=== PATIENT | female | born 1970 | race African-American/Black ===

== ENCOUNTER 2017-06-07 16:01 | Emergency (ER) | payer BC, MEDICAID ==
[2017-06-07 16:07] VITALS: BP 143/77
[2017-06-07] MEDS ORDERED: LIDOCAINE 1% INJ-PF (10 MG/ML) 30 ML SDV INJ ONE (16:37)
--- NOTE | 2017-06-07 16:43 | ER Document Report ---
HPI - HPI Pain Level: 5 Notes: Patient is a 46-year-old female who presents to the ED complaining of an abscess to the left cheek 2 weeks. Patient states that it started small pimple but has grown in size and become has become more painful. She has not noticed any discharge, red streaks she still eating and drinking without any difficulties. She has not noticed any trouble swallowing. She denies any drug allergies or other significant past medical history. Denies any history of MRSA. Denies any headache, fever, neck pain/stiffness, URI, sore throat, chest pain, palpitations, syncope, cough, shortness of breath, wheeze, dyspnea, abdominal pain, nausea/vomiting/diarrhea, urinary retention, dysuria, hematuria. Denies IV drug use or cat bite/scratch. - ROS Notes: REVIEW OF SYSTEMS: CONSTITUTIONAL : Denies fever, chills, or sweats. Denies recent illness. EENT: Denies eye, ear, throat, or mouth pain or symptoms. Denies nasal or sinus congestion or discharge. Denies throat, tongue, or mouth swelling or difficulty swallowing. CARDIOVASCULAR: Denies chest pain. Denies palpitations or racing or irregular heart beat. Denies ankle edema. RESPIRATORY: Denies cough, cold, or chest congestion. Denies shortness of breath, difficulty breathing, or wheezing. GASTROINTESTINAL: Denies abdominal pain or distention. Denies nausea, vomiting , or diarrhea. Denies blood in vomitus, stools, or per rectum. Denies black, tarry stools. Denies constipation. GENITOURINARY: Denies difficulty urinating, painful urination, burning, frequency, blood in urine, or discharge. MUSCULOSKELETAL: Denies back or neck pain or stiffness. Denies joint pain or swelling. SKIN: see hpi NEUROLOGICAL: Denies confusion or altered mental status. Denies passing out or loss of consciousness. Denies dizziness or lightheadedness. Denies headache. Denies weakness or paralysis or loss of use of either side. Denies problems with gait or speech. Denies sensory loss, numbness, or tingling. ALL OTHER SYSTEMS REVIEWED AND NEGATIVE. Dictation was performed using [employer] voice recognition software - DERM Skin Color: Normal Past Medical History - Social History Smoking Status: Unknown if Ever Smoked Family History: Reviewed & Not Pertinent Renal/ Medical History: Denies: Hx Peritoneal Dialysis Vertical Provider Document - CONSTITUTIONAL Agree With Documented VS: Yes Notes: PHYSICAL EXAMINATION: GENERAL: Well-appearing, well-nourished and in no acute distress. HEAD: Atraumatic, normocephalic. EYES: Pupils equal round and reactive to light, extraocular movements intact, sclera anicteric, conjunctiva are normal. ENT: EAC clear b/l. TM's intact b/l without erythema, fluid, or perforation. Nares patent and without discharge. oropharynx clear without exudates. No tonsilar hypertrophy or erythema. Moist mucous membranes. No sinus tenderness. No palatine shift. uvula midline. No tongue protrusion. No resp compromise. Face: + 2 cm abscess, mild erythema to the left lower face. + tenderness and fluctuant fluid noted. No streaks or discharge noted. Mouth: Pt has missing teeth to her left lateral molars. No abscess or erythema to the gum line. Non-tender. NECK: Normal range of motion, supple without lymphadenopathy. No rigidity/ meningismus. LUNGS: Breath sounds clear to auscultation bilaterally and equal. No wheezes rales or rhonchi. HEART: Regular rate and rhythm without murmurs, rubs, gallops. Extremities: No cyanosis, clubbing, or edema b/l. Peripheral pulses 2+. Capillary refill less than 3 seconds. NEUROLOGICAL: Cranial nerves grossly intact. Normal speech, normal gait. Normal sensory, motor exams PSYCH: Normal mood, normal affect. SKIN: See Face Exam. warm, Dry, normal turgor, no rashes or lesions noted. - INFECTION CONTROL TRAVEL OUTSIDE OF THE [place] IN LAST 30 DAYS: No - RESPIRATORY O2 Sat by Pulse Oximetry: 98 Course - Re-evaluation Re-evalutation: 06/07/17 17:23 Patient is an afebrile, well-hydrated, 46-year-old female who presents to the ED with an abscess to the left lower face. Vitals are stable. PE otherwise unremarkable. Incision and drainage w. packing was performed successfully without any complications. Patient tolerated the procedure well. Wound dressing was placed. Wound culture was obtained and is pending. I will send her home with a prescription for Bactrim and Keflex to take as directed. Wound instructions as reviewed. Conservative measures for symptoms otherwise as reviewed. Recheck with your PCM/ED in 2-3 days. Return to the ED with any worsening/concerning symptoms otherwise as reviewed in discharge. Patient is in agreement. Low suspicion for any sepsis, meningitis, violetta's, peritonsilar/pharyngeal abscess, nec fasc, or other systemic emergent condition at this time. Pt is aware that her condition can change from initial presentation and she needs to monitor symptoms closely and seek medical attention if any acute changes. - Vital Signs Vital signs: Temp Pulse Resp BP Pulse Ox 99.2 F 83 16 143/77 H 98 06/07/17 16:05 06/07/17 16:05 06/07/17 16:05 06/07/17 16:05 06/07/17 16:05 Procedures - Incision and Drainage Left Face Time completed: 17:20 Type: Simple Anesthetic type: 1% Lidocaine mL's of anesthetic: 5 Blade size: 11 I&D procedure: Chlorprep applied, Shurclens applied, Sterile dressing applied Incision Method: Incision made by scalpel Amount/type of drainage: Moderate purulence Notes: 06/07/17 17:20 Incision and drainage procedure, risks, benefits reviewed with the patient. Verbal and written consent obtained. Sterile technique utilized. The area was extensively cleansed utilizing chlorhexadine and saline. A 21-gauge needle was utilized to anesthetize the area using 5 mL's of 1% lidocaine without epinephrine. Once adequate anesthesia was provided, a #11 scalpel was utilized to make a 1.5 cm elliptical incision at the site of the abscess. Moderate amounts of purulent material was expressed. Wound culture obtained. Hemostats were then utilized to break up any remaining muscular pockets within the abscess. The wound was then lightly packed using 1/4" iodoform. Wound dressing and triple antibiotic placed. Minimal blood loss (approximately 2-3 cc's). Patient tolerated procedure well. No complications. Adult Head Front/Back picture: 1 - abscess Discharge - Discharge Clinical Impression: Abscess Condition: Stable Disposition: HOME, SELF-CARE Instructions: Abscess ([facility]), Cephalexin ([facility]), Post Incision and Drainage, Trimethoprim-Sulfa ([facility]) Additional Instructions: Do not shower or bathe for 24 hours. After 24 hours she may shower but no submersion of the wound under water. Keep the original dressing on the wound for 24 hours unless the drainage soaks through. Change the dressing daily thereafter and use a small amount of triple antibiotic ointment over the open wound. Return to the ED and/or your PCM in 2-3 days for recheck and continue direction for wound packing. Monitor for any signs of worsening pain or redness , streaks, and/or fever. Return to the ED if noticing any of the above symptoms or as needed. Take medications as directed. Prescriptions: Cephalexin Monohydrate [Keflex 500 mg Capsule] 500 mg PO BID #20 capsule Sulfamethoxazole/Trimethoprim [Bactrim Ds Tablet] 1 each PO BID #20 tablet Forms: Elevated Blood Pressure Referrals: [facility] [Provider Group] - Follow up as needed [facility] [Provider Group] - Follow up as needed
== END 2017-06-07 17:52 | disposition home or self-care (01) ==
LOC: ER 16:01
PROC: 0H91XZZ Drainage of Face Skin, External Approach (ICD-10-PCS; principal; 2017-06-07)
DX: L02.01 Cutaneous abscess of face (principal)
CPT/HCPCS: 99283; 87070; 87205; 87075; 87077; 10060; A6266

== ENCOUNTER 2017-06-10 12:57 | Emergency (ER) | payer SELFPAY ==
[2017-06-10 13:14] VITALS: BP 131/83
[2017-06-10] MEDS ORDERED: HYDROCODONE/ACETAMINOPHEN 5-325 MG TABLET PO ONE (14:09)
--- NOTE | 2017-06-10 14:12 | ER Document Report ---
ED Wound - General Chief Complaint: Wound Recheck Stated Complaint: ER FOLLOW UP Time Seen by Provider: 06/10/17 14:08 Mode of Arrival: Ambulatory Information source: Patient Notes: Patient had facial abscess treated and packed 3 days ago. She returns now for a recheck. She states still has some tenderness. No fevers or drainage of pus. No other significant concerns. The pain is been constant. It radiates throughout her face. It is worse when touched and better if left alone. TRAVEL OUTSIDE OF THE [place] IN LAST 30 DAYS: No - Related Data Allergies/Adverse Reactions: banana Allergy (Verified 06/10/17 13:14) Past Medical History - General Information source: Patient - Social History Smoking Status: Never Smoker Chew tobacco use (# tins/day): No Frequency of alcohol use: None Drug Abuse: None Family History: Reviewed & Not Pertinent Renal/ Medical History: Denies: Hx Peritoneal Dialysis - Immunizations Hx Diphtheria, Pertussis, Tetanus Vaccination: No Review of Systems - Review of Systems Constitutional: denies: Chills, Fever Respiratory: denies: Cough, Short of breath Skin: Lesions, Rash Physical Exam - Vital signs Vitals: Temp Pulse Resp BP Pulse Ox 98.8 F 97 16 131/83 H 99 06/10/17 13:12 06/10/17 13:12 06/10/17 13:12 06/10/17 13:12 06/10/17 13:12 Interpretation: Normal - General General appearance: Appears well, Alert - Psychological Associated symptoms: Normal affect, Normal mood - Skin Skin Temperature: Warm Skin Moisture: Dry Skin Color: Normal, Other - Skin exam unremarkable other than left cheek. Left cheek has an obvious healing abscess with iodoform packing in place. It appears to be healing normally. Course - Re-evaluation Re-evalutation: 06/10/17 14:10 Iodoform packing was removed. Wound was inspected. It appears to be healing normally. No significant drainage of pus. No significant surrounding erythema. Wound was redressed by the nurse. - Vital Signs Vital signs: Temp Pulse Resp BP Pulse Ox 98.8 F 97 16 131/83 H 99 06/10/17 13:12 06/10/17 13:12 06/10/17 13:12 06/10/17 13:12 06/10/17 13:12 Discharge - Discharge Clinical Impression: Encounter for wound re-check Condition: Stable Disposition: HOME, SELF-CARE Instructions: Abscess ([facility]) Additional Instructions: Please follow-up with your primary care physician early next week. Please return to the emergency department if further problems with fever, pain, or any significant concerns. Prescriptions: Hydrocodone/Acetaminophen [[place] 5-325 mg Tablet] 1 tab PO Q6 #12 tablet Forms: Elevated Blood Pressure
== END 2017-06-10 14:18 | disposition home or self-care (01) ==
LOC: ER 12:57
DX: L02.01 Cutaneous abscess of face (principal)
CPT/HCPCS: 99282

== ENCOUNTER 2018-03-02 10:55 | Emergency (ER) | payer SELFPAY ==
[2018-03-02 11:02] VITALS: BP 133/78
[2018-03-02] MEDS ORDERED: KETOROLAC TROMETHAMINE INJ/PF 30 MG/1 ML SDV IM ONE (11:09)
--- NOTE | 2018-03-02 11:14 | ER Document Report ---
HPI - HPI Pain Level: 5 Notes: Patient is a 47-year-old female with a history of hypertension who presents to the ED complaining of right thumb and wrist pain times 2 days. Patient states that there has not been no injury. 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 Patient states that occasionally the pain will start to shoot up her arm, but originates and stays primarily to the wrist/ thumb area. Patient has not had any associated numbness or tingling. Patient states that using those muscles make her pain worse. She has not noticed any other swelling, bruising, or deformity. Denies any drug allergies. Denies any headache, fever, URI, sore throat, chest pain, palpitations, syncope, cough, shortness of breath, wheeze, dyspnea, abdominal pain, nausea/vomiting/diarrhea, urinary retention, dysuria, hematuria, numbness/tingling, muscle paralysis/ weakness, or rash. - ROS Systems Reviewed and Negative: Yes All other systems reviewed and negative Past Medical History - Social History Smoking Status: Never Smoker Family History: Reviewed & Not Pertinent Renal/ Medical History: Denies: Hx Peritoneal Dialysis - Immunizations Hx Diphtheria, Pertussis, Tetanus Vaccination: No Vertical Provider Document - CONSTITUTIONAL Agree With Documented VS: Yes Notes: PHYSICAL EXAMINATION: GENERAL: Well-appearing, well-nourished and in no acute distress. LUNGS: Breath sounds clear to auscultation bilaterally and equal. No wheezes rales or rhonchi. HEART: Regular rate and rhythm without murmurs, rubs, gallops. Musculoskeletal: Rt wrist: FROM to passive/active. Strength 4+/5 due to pain. No bony tenderness. N/V intact distal. Tinel/phalen negative. No scaphoid tenderness. No erythema, ecchymosis, deformity, or swelling noted. + rachele test which correlates with pain described. Extremities: No cyanosis, clubbing, or edema b/l. Peripheral pulses 2+. Capillary refill less than 3 seconds. NEUROLOGICAL: Normal speech, normal gait. Normal sensory, motor exams PSYCH: Normal mood, normal affect. SKIN: Warm, Dry, normal turgor, no rashes or lesions noted. - INFECTION CONTROL TRAVEL OUTSIDE OF THE [place] IN LAST 30 DAYS: No Course - Re-evaluation Re-evalutation: 06/12/18 11:30 Patient is an afebrile, well-hydrated, 47-year-old female who presents to the ED with right thumb/wrist pain, suspect de Quervain's tenosynovitis based on H& P. 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 Vitals are acceptable without any tachycardia, tachypnea, or hypoxia. PE is otherwise unremarkable for any neurovascular compromise, obvious tendon/ligament rupture, obvious fracture/ dislocation, septic joint. No labs or imaging warranted at this time based on H &P. Thumb spica placed today and sling provided. Toradol given IM today. I will be sending her home with a prescription for naproxen and Voltaren gel. Conservative measures otherwise for symptoms. Recheck with your PCM in 3-5 days. Call orthopedics to schedule an appointment for further evaluation and management as well. Return to the ED with any worsening/concerning symptoms otherwise as reviewed discharge. Patient is in agreement. - Vital Signs Vital signs: Temp Pulse Resp BP Pulse Ox 99.2 F 98 16 133/78 H 98 03/02/18 11:00 03/02/18 11:00 03/02/18 11:00 03/02/18 11:00 03/02/18 11:00 Procedures - Immobilization Right Wrist Thumb Time completed: 11:30 Pre-Proc Neuro Vasc Exam: Normal Immobilizer type: Thumb spica Performed by: PCT Post-Proc Neuro Vasc Exam: Normal, Unchanged from pre-exam Discharge - Discharge Clinical Impression: De Quervain's tenosynovitis, right Condition: Stable Disposition: HOME, SELF-CARE Instructions: Splint Precautions ([facility]), Temporary Sling ([facility]), Tendonitis ([facility]) Additional Instructions: Rest, Ice, Compression, Elevation Use splint/sling as directed Tylenol/ibuprofen as needed Light stretches daily Strength exercises as able Moist heat and massage may help F/u with your PCP in 3-5 days for a recheck Call orthopedics today to schedule an appointment for further evaluation and management Return to the ED with any worsening symptoms and/or development of fever, headache, chest pain, palpitations, syncope, shortness of breath, trouble breathing, abdominal pain, n/v/d, muscle weakness/paralysis, numbness/tingling, swelling, redness, or other worsening symptoms that are concerning to you. Prescriptions: Diclofenac Sodium [Voltaren] 4 gm TP QID PRN #100 gel..gm. PRN Reason: Naproxen 500 mg PO BID PRN #30 tablet PRN Reason: Forms: Elevated Blood Pressure, Return to Work Referrals: [facility] ([facility]) [Provider Group] - Follow up in 3-5 days
== END 2018-03-02 11:44 | disposition home or self-care (01) ==
LOC: ER 10:55
PROC: 2W3CX1Z Immobilization of Right Lower Arm using Splint (ICD-10-PCS; principal; 2018-03-02)
DX: M65.4 Radial styloid tenosynovitis [de Quervain] (principal)
CPT/HCPCS: 99283; 96372; 29125; J1885

== ENCOUNTER 2018-03-09 05:55 | Emergency (ER) | payer SELFPAY ==
[2018-03-09] MEDS ORDERED: HYDROCODONE/ACETAMINOPHEN 5-325 MG TABLET PO ONE (08:26)
--- NOTE | 2018-03-09 09:32 | RADIOLOGY REPORT (SQ) ---
EXAM DESCRIPTION: KNEE RIGHT 4 VIEWS COMPLETED DATE/TIME: 03/09/2018 9:24 am REASON FOR STUDY: fall COMPARISON: None. NUMBER OF VIEWS: Four views. TECHNIQUE: AP, lateral, and both oblique radiographic images acquired of the right knee. LIMITATIONS: None. FINDINGS: MINERALIZATION: Normal. BONES: No acute fracture or dislocation. No worrisome bone lesions. JOINT: No effusion. SOFT TISSUES: No soft tissue swelling. No radio-opaque foreign body. OTHER: No other significant finding. IMPRESSION: No acute fracture or malalignment. No significant knee joint effusion TECHNICAL DOCUMENTATION: JOB ID: [id number] [employer]- All Rights Reserved Reading location - IP/workstation name: [email or web address]
--- NOTE | 2018-03-09 09:39 | RADIOLOGY REPORT (SQ) ---
EXAM DESCRIPTION: FOREARM LEFT COMPLETED DATE/TIME: 03/09/2018 9:24 am REASON FOR STUDY: fall COMPARISON: None. NUMBER OF VIEWS: Two views. TECHNIQUE: Two radiographic images acquired of the left forearm, including elbow and wrist in at [address] one projection. LIMITATIONS: None. FINDINGS: MINERALIZATION: Normal. BONES: No acute fracture. No worrisome bone lesions. SOFT TISSUES: No obvious swelling or foreign body. OTHER: No other significant finding. IMPRESSION: NEGATIVE STUDY OF THE LEFT FOREARM. NO RADIOGRAPHIC EVIDENCE OF ACUTE INJURY. TECHNICAL DOCUMENTATION: JOB ID: [id number] [employer]- All Rights Reserved Reading location - IP/workstation name: [email or web address]
--- NOTE | 2018-03-09 09:40 | RADIOLOGY REPORT (SQ) ---
EXAM DESCRIPTION: KNEE LEFT 4 VIEW COMPLETED DATE/TIME: 03/09/2018 9:23 am REASON FOR STUDY: fall fell through bathroom floor, anterior left knee pain COMPARISON: None. NUMBER OF VIEWS: Four views. TECHNIQUE: AP, lateral, and both oblique radiographic images acquired of the left knee. LIMITATIONS: None. FINDINGS: MINERALIZATION: Normal. BONES: No acute fracture or dislocation. No worrisome bone lesions. JOINT: No effusion. SOFT TISSUES: No soft tissue swelling. No radio-opaque foreign body. OTHER: No other significant finding. IMPRESSION: NEGATIVE STUDY OF THE LEFT KNEE. NO RADIOGRAPHIC EVIDENCE OF ACUTE INJURY. TECHNICAL DOCUMENTATION: JOB ID: [id number] [employer]- All Rights Reserved Reading location - IP/workstation name: [email or web address]
--- NOTE | 2018-03-09 09:45 | ER Document Report ---
HPI - HPI Patient complains to provider of: Injury Onset: This morning Onset/Duration: Sudden Quality of pain: Achy Pain Level: 5 Context: Patient states that she fell through her bathroom floor around midnight this morning. Patient complains of bilateral knee pain, left forearm pain and left lateral side pain. Associated Symptoms: Other - Extremity pain, left lateral side pain Exacerbated by: Movement Relieved by: Denies Similar symptoms previously: No Recently seen / treated by doctor: Yes - ROS ROS below otherwise negative: Yes Systems Reviewed and Negative: Yes All other systems reviewed and negative - CONSTITUTIONAL Constitutional: DENIES: Fever - NEURO Neurology: DENIES: Headache, Weakness - GASTROINTESTINAL Gastrointestinal: DENIES: Nausea, Patient vomiting - URINARY Urinary: DENIES: Dysuria - MUSCULOSKELETAL Musculoskeletal: REPORTS: Extremity pain - bilateral knee, LFA. DENIES: Back Pain, Neck Pain - DERM Skin Color: Normal Skin Problems: Abrasion Past Medical History - General Information source: Patient - Social History Smoking Status: Current Every Day Smoker Chew tobacco use (# tins/day): No Smoking Education Provided: Yes Frequency of alcohol use: None Drug Abuse: None Occupation: None Lives with: Family Family History: Reviewed & Not Pertinent Patient has suicidal ideation: No Patient has homicidal ideation: No - Past Medical History Cardiac Medical History: Reports: Hx Hypertension Pulmonary Medical History: Reports: Hx Asthma Renal/ Medical History: Denies: Hx Peritoneal Dialysis Musculoskeltal Medical History: Reports Hx Arthritis Past Surgical History: Reports: Hx Section - Immunizations Hx Diphtheria, Pertussis, Tetanus Vaccination: No Vertical Provider Document - CONSTITUTIONAL Agree With Documented VS: Yes Exam Limitations: No Limitations General Appearance: WD/WN, No Apparent Distress - INFECTION CONTROL TRAVEL OUTSIDE OF THE [place] IN LAST 30 DAYS: No - HEENT HEENT: Atraumatic, Normocephalic - NECK Neck: Normal Inspection, Supple - RESPIRATORY Respiratory: Breath Sounds Normal, No Respiratory Distress - CARDIOVASCULAR Cardiovascular: Regular Rate, Regular Rhythm Pulses: Normal: Radial, Dorsalis pedis - BACK Back: Normal Inspection. negative: CVA Tenderness-Right, CVA Tenderness-Left Notes: No spinal midline tenderness, step-off or deformity - MUSCULOSKELETAL/EXTREMETIES Musculoskeletal/Extremeties: MAEW, FROM, Tender - Bilateral generalized knee joint tenderness, right worse than left. No joint effusion, no laxity with varus or valgus maneuvers. Patellar tendon intact. Patient with superficial abrasions overlying right knee. Left forearm tenderness, no wrist or elbow tenderness, no swelling or deformity. - NEURO Level of Consciousness: Awake, Alert, Appropriate Motor/Sensory: No Motor Deficit - DERM Integumentary: Warm, Dry Notes: Superficial abrasion overlying right knee Course - Re-evaluation Re-evalutation: 03/09/18 09:44 Offered patient crutches, patient declined. - Vital Signs Vital signs: Temp Pulse Resp BP Pulse Ox 98.6 F 98 16 133/80 H 96 03/09/18 06:29 03/09/18 06:29 03/09/18 06:29 03/09/18 06:29 03/09/18 06:29 - Diagnostic Test Radiology reviewed: Image reviewed, Reports reviewed Procedures - Immobilization Left Knee Pre-Proc Neuro Vasc Exam: Normal Immobilizer type: [place] wrap Performed by: PCT Post-Proc Neuro Vasc Exam: Normal Alignment checked and good: Yes Right Knee Pre-Proc Neuro Vasc Exam: Normal Immobilizer type: [place] wrap Performed by: PCT Post-Proc Neuro Vasc Exam: Normal Alignment checked and good: Yes Discharge - Discharge Clinical Impression: Sprain of both knees, Left forearm pain, Muscle strain Fall Qualifiers: Encounter type: initial encounter Qualified Code(s): W19.XXXA - Unspecified fall, initial encounter Abrasion of right knee Qualifiers: Encounter type: initial encounter Qualified Code(s): S80.211A - Abrasion, right knee, initial encounter Condition: Stable Disposition: HOME, SELF-CARE Instructions: Parish Wrap ([facility]), Ice & Elevation ([facility]), Muscle Relaxers ([facility]), Muscle Strain ([facility]), Oral Narcotic Medication ([facility]), Sprained Knee ([facility]) Additional Instructions: Return immediately for any new or worsening symptoms Followup with your primary care provider, call tomorrow to make a followup appointment Follow-up with orthopedics for any continued pain or problems, call tomorrow for an appointment Prescriptions: Cyclobenzaprine HCl [Flexeril 10 Mg Tablet] 10 mg PO TID #15 tablet Hydrocodone/Acetaminophen [[place] 5-325 Tablet] 1 each PO Q4 PRN #10 tablet PRN Reason: Forms: Smoking Cessation Education Referrals: [facility] ([facility]) [Provider Group] - Follow up as needed
[2018-03-09 10:10] VITALS: BP 133/88
== END 2018-03-09 10:10 | disposition home or self-care (01) ==
LOC: ER 05:55
DX: S83.92XA Sprain of unspecified site of left knee, initial encounter (principal); S83.91XA Sprain of unspecified site of right knee, initial encounter; S80.211A Abrasion, right knee, initial encounter; M79.632 Pain in left forearm; W18.39XA Other fall on same level, initial encounter; F17.200 Nicotine dependence, unspecified, uncomplicated; I10 Essential (primary) hypertension
CPT/HCPCS: 99283

== ENCOUNTER 2018-06-17 19:06 | Emergency (ER) | payer SELFPAY ==
[2018-06-17 19:25] VITALS: BP 130/72
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
== END 2018-06-17 20:02 | disposition home or self-care (01) ==
LOC: ER 19:06
DX: L20.82 Flexural eczema (principal); Z09 Encounter for follow-up examination after completed treatment for conditions other than malignant neoplasm; Z87.828 Personal history of other (healed) physical injury and trauma; I10 Essential (primary) hypertension; J45.909 Unspecified asthma, uncomplicated
CPT/HCPCS: 99283

== ENCOUNTER 2018-07-08 14:01 | Emergency (ER) | payer SELFPAY ==
[2018-07-08] MEDS ORDERED: IBUPROFEN 800 MG TABLET PO ONE (14:43)
--- NOTE | 2018-07-08 14:44 | ER Document Report ---
ED Neck/Back Problem - General Chief Complaint: Back Pain Stated Complaint: BACK PAIN Time Seen by Provider: 07/08/18 14:30 Mode of Arrival: Ambulatory Information source: Patient Notes: 48-year old female presents to ED for complaint of pain to her upper back and right shoulder. She also has chronic pain to her left knee from a injury in March and both feet because of heel spurs. Patient states she has had the pain off and on is been worse for the last 2 weeks. Patient does not work. Patient states that her doctor gave her something for arthritis and told her she had arthritis. 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 Patient is alert and oriented respirations regular and unlabored speaking in full sentences walks with a even steady gait. TRAVEL OUTSIDE OF THE [place] IN LAST 30 DAYS: No - HPI Patient complains to provider of: Upper back - And right shoulder Onset: Other - Upper back off and on chronic but worse for the last 2 weeks right shoulder for 2 weeks Onset: Chronic Timing: Still present Quality of pain: Sharp, Throbbing Severity: Severe Pain Level: 5 Recent injury: No Associated symptoms: Like prior neck/back pain, Upper back pain - 2 right shoulder. denies: Motor loss, Numbness/tingling, Radiation to arm, Radiation to chest, Radiation to leg, Sensory loss, Sweaty, Unable to urinate, Lower back pain Exacerbated by: Movement of neck, Other Relieved by: Nothing - Mental shoulder Similar symptoms previously: Yes Recently seen / treated by doctor: Yes - Related Data Allergies/Adverse Reactions: banana Allergy (Verified 07/08/18 14:02) Past Medical History - General Information source: Patient - Social History Smoking Status: Never Smoker Cigarette use (# per day): No Chew tobacco use (# tins/day): No Smoking Education Provided: No Frequency of alcohol use: None Drug Abuse: None Lives with: Family Family History: Reviewed & Not Pertinent Patient has suicidal ideation: No Patient has homicidal ideation: No - Past Medical History Cardiac Medical History: Reports: Hx Hypertension Pulmonary Medical History: Reports: Hx Asthma EENT Medical History: Reports: None Neurological Medical History: Reports: None Endocrine Medical History: Reports: None Renal/ Medical History: Reports: None Malignancy Medical History: Reports: None GI Medical History: Reports: None Musculoskeletal Medical History: Reports Hx Arthritis, Reports Hx Musculoskeletal Deformity - Bone spurs, Reports Hx Musculoskeletal Trauma Skin Medical History: Reports None Psychiatric Medical History: Reports: None Traumatic Medical History: Reports: None Infectious Medical History: Reports: None Past Surgical History: Reports: Hx Section - 3 - Immunizations Immunizations up to date: Yes Hx Diphtheria, Pertussis, Tetanus Vaccination: Yes - 2013 Review of Systems - Review of Systems Constitutional: No symptoms reported EENT: No symptoms reported Cardiovascular: No symptoms reported Respiratory: No symptoms reported Gastrointestinal: No symptoms reported Genitourinary: No symptoms reported Female Genitourinary: No symptoms reported Musculoskeletal: Back pain, Muscle pain, Muscle stiffness Skin: No symptoms reported Hematologic/Lymphatic: No symptoms reported Neurological/Psychological: No symptoms reported -: Yes All other systems reviewed and negative Physical Exam - Vital signs Vitals: Temp Pulse Resp BP Pulse Ox 98.7 F 83 20 117/68 99 07/08/18 14:06 07/08/18 14:06 07/08/18 14:06 07/08/18 14:06 07/08/18 14:06 Interpretation: Normal - General General appearance: Appears well, Alert - HEENT Head: Normocephalic, Atraumatic Eyes: Normal Pupils: PERRL - Respiratory Respiratory status: No respiratory distress Chest status: Nontender Breath sounds: Normal Chest palpation: Normal - Cardiovascular Rhythm: Regular Heart sounds: Normal auscultation Murmur: No - Abdominal Inspection: Normal Distension: No distension Bowel sounds: Normal Tenderness: Nontender Organomegaly: No organomegaly - Back Back: Normal, Tender - Upper back and right posterior shoulder, Vertebra tenderness - t spine. No: Deformity/step-off, CVA tenderness, Scars, Scoliosis , Wounds - Extremities General upper extremity: Normal inspection, Nontender, Normal color, Normal ROM , Normal temperature General lower extremity: Normal inspection, Nontender, Normal color, Normal ROM , Normal temperature, Normal weight bearing. No: Leonides's sign - Neurological Neuro grossly intact: Yes Cognition: Normal Orientation: AAOx4 [place] Coma Scale Eye Opening: Spontaneous [place] Coma Scale Verbal: Oriented [place] Coma Scale Motor: Obeys Commands Gary Coma Scale Total: 15 Speech: Normal Motor strength normal: LUE, RUE, LLE, RLE Sensory: Normal - Psychological Associated symptoms: Normal affect, Normal mood - Skin Skin Temperature: Warm Skin Moisture: Dry Skin Color: Normal Course - Vital Signs Vital signs: Temp Pulse Resp BP Pulse Ox 97.6 F 76 20 117/75 98 07/08/18 15:46 07/08/18 15:46 07/08/18 14:06 07/08/18 15:46 07/08/18 15:46 - Diagnostic Test Radiology reviewed: Image reviewed, Reports reviewed Discharge - Discharge Clinical Impression: Arthritis, Upper back pain Right shoulder pain Qualifiers: Chronicity: unspecified Qualified Code(s): M25.511 - Pain in right shoulder Bilateral knee pain Qualifiers: Chronicity: unspecified Qualified Code(s): M25.561 - Pain in right knee Condition: Stable Disposition: HOME, SELF-CARE Additional Instructions: Arthritis Your symptoms are due to arthritis. Arthritis is an inflammation of the joints. There are many types -- osteoarthritis (due to "wear and tear"), auto- immmune arthritis (such as rheumatoid, lupus, Maciej's, and others), and crystal -induced arthritis (such as gout and pseudogout). The physician's examination, combined with laboratory tests, will determine the cause of your arthritis. All types of arthritis are treated with antiinflammatory medications. Other medication may be required for special types of arthritis, or if your problem does not respond to the antiinflammatory medicine. Local warmth may be helpful. Move the involved joints through the full range of motion daily. Mild exercise is usually still possible for most persons with arthritis (ask your physician). Swimming provides good exercise without damaging the joints. Contact the physician if you are worsening in any way. CONTUSION: Your injury has resulted in a contusion -- a crushing of the deep tissues. No injury to important structures was detected during the physician's exam. Contusions vary in the amount of pain they cause, and in the length of time required for healing. Typically, the area will become bruised, and will remain painful to touch for two or three weeks. However, most patients are back to working and playing within a few days. After the initial period of rest and cold-packs, your symptoms (together with the doctor's recommendations) will determine how rapidly you can get back to full activity. Usually this means "do what feels okay, but don't do things that hurt." If re-examination was recommended, it's important to follow up as instructed. Call the doctor or return any time if pain increases, if swelling becomes severe, if you develop numbness or weakness in an injured extremity, or if any other alarming symptoms occur. USE OF TYLENOL (ACETAMINOPHEN): Acetaminophen may be taken for pain relief or fever control. It's much safer than aspirin, offering a wider range of "safe" dosages. It is safe during . Some brand names are Tylenol, Panadol, Datril, Anacin 3, Tempra, and Liquiprin. Acetaminophen can be repeated every four hours. The following are maximum recommended dosages: WEIGHT Dose Drops Elixir Chewable( 80mg) (LBS.) drprs=droppers tsp=teaspoon 6 40 mg 0.4 ml (1/2) 6-11 80 mg 0.8 ml (full) tsp 1 tab 12-16 120 mg 1 1/2 drprs 3/4 tsp 1 1/2 tabs 17-23 160 mg 2 drprs 1 tsp 2 tabs 24-30 240 mg 3 drprs 1 1/2 tsp 3 tabs 30-35 320 mg 2 tsp 4 tabs 36-41 360 mg 2 1/4 tsp 4 1/2 tabs 42-47 400 mg 2 1/2 tsp 5 tabs 48-53 480 mg 3 tsp 6 tabs 54-59 520 mg 3 1/4 tsp 6 1/2 tabs 60-64 560 mg 3 1/2 tsp 7 tabs 65-70 600 mg 3 3/4 tsp 7 1/2 tabs 71-76 640 mg 4 tsp 8 tabs 77-82 720 mg 4 1/2 tsp 9 tabs 83-88 800 mg 5 tsp 10 tabs >89 pounds or adults 650 mg to 900 mg Acetaminophen can be repeated every four hours. Maximum dose not to exceed 4000 mg a day. These maximum recommended dosages are slightly higher than the dosages written on the product container, but these dosages are very safe and below the toxic dosage for acetaminophen. ICE PACKS: Apply ice packs frequently against the painful area. Many different schedules are recommended, such as "20 minutes on, 20 minutes off" or "one hour ice, two hours rest." If you need to work, you may need to go longer between ice treatments. You should plan to have the area ice packed AT LEAST one fourth of the time. The ice should be applied over the wrap, tape, or splint, or over a layer of cloth -- not directly against the skin. Some ice bags have a built-in cloth and can be put directly on the skin. WARM PACKS: After approximately two days, apply gentle heat (such as a heating pad or hot water bottle) for about 20 to 30 minutes about every two hours -- at least four times daily. Warmth and elevation will help you make a more rapid recovery , and will ease the pain considerably. Do not use HOT heat, and never apply heat for longer than 30 minutes. The continuous heat can invisibly damage skin and muscles -- even when no burn is seen on the surface. Damaged muscles can make you MORE sore. Ibuprofen Ibuprofen is an excellent, safe drug for pain control. In addition, it has potent antiinflammatory effects which are beneficial, especially in the treatment of injuries, arthritis, or tendonitis. It's best to take ibuprofen with food. Persons with ulcer disease or allergy to aspirin should notify their physician of this before taking ibuprofen. Take the medication exactly as prescribed. Don't take additional doses unless instructed to do so by your doctor. If you develop wheezing, shortness of breath, hives, faintness, stomach pain, vomiting, or dark black stools, return for re-evaluation at once. Exercise Program for the Shoulder Since the shoulder moves in so many directions, the joint attachment is weak. Muscles provide most of the stability to the shoulder. You must exercise your shoulder to prevent painful instability or stiffening. PASSIVE - These may be begun within a few days of the injury. While standing, lean forward, allowing the arm to hang down towards the floor. Move the arm in small circles while slowly twisting your chest towards and away from the hanging arm. Do this for one minute. ACTIVE - These may be performed when the doctor gives permission. Begin with the arms at the sides. Raise the arms forward (shoulder's width apart) until they reach shoulder level. Then slowly swing both arms back until they are aiming straight out away from each other. Then bring them forward again, and finally, lower them to your sides. Repeat 20 to 30 times. As you improve, put weights in your hands for the exercise. Start with one pound, and work up to 10 pounds. Never use more than is comfortable. Athletes may work up to 30 pounds. Knee Exercise Program It's important to strengthen the muscles around the knee. This protects the injured area and stabilizes a knee that's been loosened by ligament injury. EARLY - Even when motion of the knee is painful (even when wearing a splint ), you can begin isometric "quads" exercises. While sitting, hold the knee out, and contract the muscles to stiffen it. It shouldn't be straightened all the way -- stiffen it in a slightly-bent position. Lift the leg and draw a "T" with your foot, up to 100 times. When it becomes easy, add a weight on your foot. LATE - When the doctor advises you, you can begin moving the knee against resistance. The front muscles (quadriceps) are most important. While sitting at a [employer], straighten the knee forcefully while pushing a weight up with your ankle. Start with five to 10 pounds. Do 10 to 20 repetitions, increasing the weight as tolerated. Don't use more weight than is comfortable! Over a few weeks, work up to 35 to 50 pounds. Athletes should try to reach 70 to 90 pounds. FOLLOW-UP CARE: If you have been referred to a physician for follow-up care, call the physician s office for an appointment as you were instructed or within the next two days. If you experience worsening or a significant change in your symptoms, notify the physician immediately or return to the Emergency Department at any time for re-evaluation. Forms: Return to Work Referrals: [facility] ([facility]) [Provider Group] - Follow up as needed
[2018-07-08] MEDS ORDERED: LIDOCAINE 5% (700 MG) TRANSDERMAL ADH..PATCH TP ONE (14:47)
--- NOTE | 2018-07-08 15:20 | RADIOLOGY REPORT (SQ) ---
EXAM DESCRIPTION: SHOULDER RIGHT 2 OR MORE VIEWS COMPLETED DATE/TIME: 07/08/2018 3:02 pm REASON FOR STUDY: pain with range of motion COMPARISON: None. NUMBER OF VIEWS: Three views. TECHNIQUE: Internal rotation, external rotation, and Y view images acquired of the right shoulder. LIMITATIONS: None. FINDINGS: MINERALIZATION: Normal. BONES: No acute fracture or dislocation. No worrisome bone lesions. JOINTS: No dislocation. VISUALIZED LUNGS AND RIBS: No pneumothorax. No rib fracture. SOFT TISSUES: No radiopaque foreign body. OTHER: No other significant finding. IMPRESSION: NEGATIVE STUDY OF THE RIGHT SHOULDER. NO RADIOGRAPHIC EVIDENCE OF ACUTE INJURY. TECHNICAL DOCUMENTATION: JOB ID: [id number] [employer]- All Rights Reserved Reading location - IP/workstation name: [email or web address]
--- NOTE | 2018-07-08 15:22 | RADIOLOGY REPORT (SQ) ---
EXAM DESCRIPTION: T SPINE AP/LAT COMPLETED DATE/TIME: 07/08/2018 3:02 pm REASON FOR STUDY: pain with range of motion COMPARISON: None. NUMBER OF VIEWS: Two views. TECHNIQUE: AP and lateral radiographic images acquired of the thoracic spine. LIMITATIONS: None. FINDINGS: MINERALIZATION: Normal. ALIGNMENT: Mild sigmoid scoliosis. VERTEBRAE: No fracture or bone lesion. Maintained height, normal segmentation. DISCS: Multilevel disc space narrowing with osteophytes. HARDWARE: None in the spine. MEDIASTINUM AND SOFT TISSUES: Normal heart size and aortic contour. No soft tissue abnormality. VISUALIZED LUNG WAGGONER: Clear. OTHER: No other significant finding. IMPRESSION: No acute findings. TECHNICAL DOCUMENTATION: JOB ID: [id number] [employer]- All Rights Reserved Reading location - IP/workstation name: [email or web address]
[2018-07-08 15:48] VITALS: BP 117/75
== END 2018-07-08 15:57 | disposition home or self-care (01) ==
LOC: ER 14:01
DX: G89.29 Other chronic pain (principal); M54.9 Dorsalgia, unspecified; M25.562 Pain in left knee; M19.90 Unspecified osteoarthritis, unspecified site; M25.511 Pain in right shoulder; M25.561 Pain in right knee; I10 Essential (primary) hypertension
CPT/HCPCS: 72070; 99283

== ENCOUNTER 2018-08-26 10:45 | Emergency (ER) | payer SELFPAY ==
[2018-08-26] MEDS ORDERED: MECLIZINE HCL 25 MG TABLET PO ONE (11:02)
[2018-08-26] MEDS ORDERED: ONDANSETRON 4 MG TAB.RAPDIS PO ONE (11:02)
--- NOTE | 2018-08-26 11:04 | ER Document Report ---
ED Medical Screen (RME) - General Chief Complaint: Dizziness Stated Complaint: DIZZY, NAUSEA, HEADACHE Time Seen by Provider: 08/26/18 10:54 Mode of Arrival: Ambulatory Information source: Patient Notes: 48 years old female presents today with dizziness and spinning sensation, nausea the last few days. No focal weakness numbness tingling sensation. She was seen recently seen in hospital in [place], had complete cardiac workup done, indicates she has cardiomegaly due to possibly cardiomyopathy. Angiogram was normal On examination she has severe right lateral nystagmus noted. Both ureters are completely covered with wax No focal neurological deficit TRAVEL OUTSIDE OF THE [place] IN LAST 30 DAYS: No - Related Data Allergies/Adverse Reactions: banana Allergy (Verified 08/26/18 10:47) Past Medical History - Social History Frequency of alcohol use: None Drug Abuse: None - Past Medical History Cardiac Medical History: Reports: Hx Hypertension Pulmonary Medical History: Reports: Hx Asthma Renal/ Medical History: Denies: Hx Peritoneal Dialysis Musculoskeltal Medical History: Reports Hx Arthritis, Reports Hx Musculoskeletal Deformity - Bone spurs, Reports Hx Musculoskeletal Trauma Past Surgical History: Reports: Hx Cardiac Catheterization, Hx Section - 3 - Immunizations Immunizations up to date: Yes Hx Diphtheria, Pertussis, Tetanus Vaccination: Yes - 2013 Physical Exam - Vital signs Vitals: Temp Pulse Resp BP Pulse Ox 98.5 F 93 16 131/85 H 98 08/26/18 10:48 08/26/18 10:48 08/26/18 10:48 08/26/18 10:48 08/26/18 10:48 Course - Vital Signs Vital signs: Temp Pulse Resp BP Pulse Ox 98.5 F 93 16 131/85 H 98 08/26/18 10:48 08/26/18 10:48 08/26/18 10:48 08/26/18 10:48 08/26/18 10:48
[2018-08-26] MEDS ORDERED: NORMAL SALINE 1000 ML 1,000 ML IV ONE (11:31)
--- NOTE | 2018-08-26 11:34 | ER Document Report ---
ED Dizziness/Weakness - General Chief Complaint: Dizziness Stated Complaint: DIZZY, NAUSEA, HEADACHE Time Seen by Provider: 08/26/18 10:54 Mode of Arrival: Ambulatory Notes: 48-year-old female presents to the emergency complaining of cough congestion dizziness and some chest discomfort. The patient stated for the last several days she has been having issues with cough congestion. She has been feeling very dizzy. States the room does spin around her. States she is achy all over just does not feel good. Patient had some nausea but no vomiting. Denies extremity numbness tingling weakness she has had a lot of congestion mild headache due to this. Denies any thunderclap rapid onset. States her cough has been productive with yellow sputum denies any hemoptysis. States she has had some chest discomfort with coughing only. Nothing at rest. Denies any calf pain or leg swelling. Complains of fever and chills TRAVEL OUTSIDE OF THE [place] IN LAST 30 DAYS: No - Related Data Allergies/Adverse Reactions: banana Allergy (Verified 08/26/18 10:47) Past Medical History - General Information source: Patient - Social History Smoking Status: Current Every Day Smoker Frequency of alcohol use: None Drug Abuse: None Family History: Reviewed & Not Pertinent Patient has suicidal ideation: No Patient has homicidal ideation: No - Past Medical History Cardiac Medical History: Reports: Hx Hypertension Pulmonary Medical History: Reports: Hx Asthma Renal/ Medical History: Denies: Hx Peritoneal Dialysis Musculoskeletal Medical History: Reports Hx Arthritis, Reports Hx Musculoskeletal Deformity - Bone spurs, Reports Hx Musculoskeletal Trauma Past Surgical History: Reports: Hx Cardiac Catheterization, Hx Section - 3 - Immunizations Immunizations up to date: Yes Hx Diphtheria, Pertussis, Tetanus Vaccination: Yes - 2013 Review of Systems - Review of Systems Constitutional: Chills, Fever EENT: Nose congestion. denies: Ear pain Cardiovascular: Chest pain, Dizziness, Lightheaded. denies: Palpitations, Orthopnea, Edema Respiratory: denies: Short of breath Gastrointestinal: Nausea. denies: Abdominal pain, Diarrhea, Vomiting Neurological/Psychological: Headaches. denies: Lost consciousness, Numbness, Tingling -: Yes All other systems reviewed and negative Physical Exam - Vital signs Vitals: Temp Pulse Resp BP Pulse Ox 98.5 F 93 16 131/85 H 98 08/26/18 10:48 08/26/18 10:48 08/26/18 10:48 08/26/18 10:48 08/26/18 10:48 - Notes Notes: GENERAL_APPEARANCE: well_nourished, alert, cooperative VITALS: reviewed, see vital signs table. HEAD: no_swelling\tenderness on the head. EYES: PERRL, EOMI, conjunctiva_clear. NOSE: Clear_nasal_discharge. Mild turbinate inflammation MOUTH: (-)decreased moisture. THROAT: Mild throat_inflammation, no_airway_obstruction. no_lymphadenopathy NECK: supple, no_neck_tenderness, (-)thyromegaly. BACK: no_back_tenderness. CHEST_WALL: no_chest_tenderness. LUNGS: no_wheezing, no_rales, no_rhonchi, (-)accessory muscle use, good air exchange bilateral. HEART: normal_rate, normal_rhythm, normal_S1, normal_S2, (-)S3, (-)S4, no_ murmur, no_rub. ABDOMEN: normal_BS, soft, no_abd_tenderness, (-)guarding, (-)rebound, no_ organomegaly, no_abd_masses. EXTREMITIES: good pulses in all_extremities, no_swelling\tenderness in the extremities, no_edema. SKIN: warm, dry, good_color, no_rash. MENTAL_STATUS: speech_clear, oriented_X_3, normal_affect, responds_ appropriately to questions. NEURO: Neg Motor or Sensory Deficits on exam, CN 2-12 intact, DTR 2+ symmetric x 4, No cerbellar signs, patient has some mild nystagmus upon head turning. Course - Re-evaluation Re-evalutation: 08/26/18 11:38 Patient appears to have a upper respiratory infection with some vertigo. She is coughing up some yellow sputum also. No hemoptysis. Complains of some chest discomfort with that we will check some generalized lab work EKG chest x- ray. We will give her some meclizine for vertigo. Both her ears are clear there is no signs of significant serous otitis media or infection. 08/26/18 15:02 Feels much better after IV fluids and meclizine. Patient does have a small UTI will place the patient on cephalexin for that. Also prescribed meclizine for home repeat neuro exam is again nonfocal there is no cranial nerve deficits no motor or sensory deficits no ataxia. Patient had a URI that possibly affected the inner ears causing the vertigo. She otherwise is doing well and will be discharged home. - Vital Signs Vital signs: Temp Pulse Resp BP Pulse Ox 98.5 F 93 18 129/88 H 100 08/26/18 10:48 08/26/18 10:48 08/26/18 12:00 08/26/18 11:33 08/26/18 12:00 - Laboratory Result Diagrams: 08/26/18 12:04 08/26/18 12:04 Laboratory results interpreted by me: 08/26/18 08/26/18 08/26/18 12:04 12:04 12:25 Hgb 10.1 L Hct 31.8 L MCV 72 L MCH 22.7 L MCHC 31.6 L RDW 17.3 H Eosinophils % 6.1 H Chloride 108 H Urine Blood LARGE H Ur Leukocyte Esterase LARGE H - Diagnostic Test Radiology reviewed: Image reviewed, Reports reviewed Radiology results interpreted by me: 08/26/18 15:[address] 08/26/18 11:01 IMPRESSION: NORMAL BRAIN CT WITHOUT CONTRAST. EVIDENCE OF ACUTE STROKE: NO. Chest X-Ray 08/26/18 11:32 IMPRESSION: NO ACUTE RADIOGRAPHIC FINDING IN THE CHEST. - EKG Interpretation by Me EKG shows normal: Sinus rhythm Rhythm: NSR Discharge - Discharge Clinical Impression: Vertigo URI (upper respiratory infection) Qualifiers: Streptococcal tonsillitis recurrence: non-recurrent UTI (urinary tract infection) Qualifiers: Urinary tract infection type: acute cystitis Hematuria presence: without hematuria Qualified Code(s): N30.00 - Acute cystitis without hematuria Disposition: HOME, SELF-CARE Instructions: Upper Respiratory Illness ([facility]), Urinary Tract Infection, Child ( [facility]), Vertigo ([facility]) Prescriptions: Cephalexin [Cephalexin 500 MG Tablet] 1 tab PO TID #21 tablet Meclizine HCl [Antivert 25 mg Tablet] 25 mg PO TID PRN #30 tablet PRN Reason:
--- NOTE | 2018-08-26 11:57 | RADIOLOGY REPORT (SQ) ---
EXAM DESCRIPTION: CT HEAD WITHOUT COMPLETED DATE/TIME: 08/26/2018 11:30 am REASON FOR STUDY: Vertigo, dizziness COMPARISON: None. TECHNIQUE: Axial images acquired through the brain without intravenous contrast. Images reviewed wi th bone, brain and subdural windows. Additional sagittal and coronal reconstructions were generated. Images stored on PACS. All CT scanners at this facility use dose modulation, iterative reconstruction, and/or weight based d osing when appropriate to reduce radiation dose to as low as reasonably achievable (ALARA). [facility]: Dose Right [facility]: CareDose [facility]: Dose Right [facility]: Teradose 4D [facility]: Vyclone RADIATION DOSE: CT Rad equipment meets quality standard of care and radiation dose reduction techniq ues were employed. CTDIvol: 53.2 mGy. DLP: 1044 mGy-cm. mGy. LIMITATIONS: None. FINDINGS: VENTRICLES: Normal size and contour. CEREBRUM: No masses. No hemorrhage. No midline shift. No evidence for acute infarction. Normal gra y/white matter differentiation. No areas of low density in the white matter. CEREBELLUM: No masses. No hemorrhage. No alteration of density. No evidence for acute infarction. EXTRAAXIAL SPACES: No fluid collections. No masses. ORBITS AND GLOBE: No intra- or extraconal masses. Normal contour of globe without masses. CALVARIUM: No fracture. PARANASAL SINUSES: No fluid or mucosal thickening. SOFT TISSUES: No mass or hematoma. OTHER: No other significant finding. IMPRESSION: NORMAL BRAIN CT WITHOUT CONTRAST. EVIDENCE OF ACUTE STROKE: NO. COMMENT: Quality ID # [id number]: Final reports with documentation of one or more dose reduction techniques (e.g., Automated exposure control, adjustment of the mA and/or kV according to patient size, use of iterative reconstruction technique) TECHNICAL DOCUMENTATION: JOB ID: [id number] [employer]- All Rights Reserved Reading location - IP/workstation name: [email or web address]
[2018-08-26 12:16] LABS: ABSOLUTE BASOPHILS # (AUTO) 0.1 10^3/uL (0.0-0.2); ABSOLUTE EOSINOPHILS # (AUTO) 0.5 10^3/uL (0.0-0.6); ABSOLUTE LYMPHOCYTES (AUTO) 1.8 10^3/uL (0.5-4.7); ABSOLUTE MONOCYTES (AUTO) 0.4 10^3/uL (0.1-1.4); ABSOLUTE NEUT (AUTO) 5.2 10^3/uL (1.7-8.2); BASOPHILS % (AUTO) 0.9 % (0-2); EOSINOPHILS % (AUTO) 6.1 % (0-6); HEMATOCRIT 31.8 % (36.0-47.0); HEMOGLOBIN 10.1 g/dL (12.0-15.5); LYMPHOCYTES % (AUTO) 22.5 % (13-45); MEAN CORPUSCULAR HEMOGLOBIN 22.7 pg (27.0-33.4); MEAN CORPUSCULAR HGB CONC 31.6 g/dL (32.0-36.0); MEAN CORPUSCULAR VOLUME 72 fl (80-97); MONOCYTES % (AUTO) 5.5 % (3-13); PLATELET COUNT 386 10^3/uL (150-450); RED BLOOD COUNT 4.43 10^6/uL (3.72-5.28); RED CELL DISTRIBUTION WIDTH 17.3 % (11.5-14.0); TOTAL CELLS COUNTED % (AUTO) 100 %
--- NOTE | 2018-08-26 12:21 | RADIOLOGY REPORT (SQ) ---
EXAM DESCRIPTION: CHEST SINGLE VIEW COMPLETED DATE/TIME: 08/26/2018 12:11 pm REASON FOR STUDY: cp cough COMPARISON: None. EXAM PARAMETERS: NUMBER OF VIEWS: One view. TECHNIQUE: Single frontal radiographic view of the chest acquired. RADIATION DOSE: NA LIMITATIONS: None. FINDINGS: LUNGS AND PLEURA: No opacities, masses or pneumothorax. No pleural effusion. MEDIASTINUM AND HILAR STRUCTURES: No masses. Contour normal. HEART AND VASCULAR STRUCTURES: Heart normal in size. Normal vasculature. BONES: No acute findings. HARDWARE: None in the chest. OTHER: No other significant finding. IMPRESSION: NO ACUTE RADIOGRAPHIC FINDING IN THE CHEST. TECHNICAL DOCUMENTATION: JOB ID: [id number] [employer]- All Rights Reserved Reading location - IP/workstation name: [email or web address]
[2018-08-26 12:37] LABS: ANION GAP 7 (5-19); BLOOD UREA NITROGEN 9 mg/dL (7-20); CALCIUM 9.5 mg/dL (8.4-10.2); CARBON DIOXIDE 27 mmol/L (22-30); CHLORIDE 108 mmol/L (98-107); GLUCOSE 93 mg/dL (75-110); POTASSIUM 4.4 mmol/L (3.6-5.0); SODIUM 141.7 mmol/L (137-145)
[2018-08-26 13:04] LABS: APPEARANCE,URINE CLOUDY; BILIRUBIN,URINE NEGATIVE (NEGATIVE); COLOR,URINE YELLOW; GLUCOSE, URINE NEGATIVE (NEGATIVE); KETONES,URINE NEGATIVE (NEGATIVE); LEUKOCYTE ESTERASE,URINE LARGE (NEGATIVE); NITRITE,URINE NEGATIVE (NEGATIVE); PROTEIN,URINE NEGATIVE (NEGATIVE); URINE SPECIFIC GRAVITY 1.009; UROBILINOGEN,URINE NEGATIVE mg/dL (<2.0)
[2018-08-26 13:11] LABS: A TYPE INFLUENZA AG NEGATIVE (NEGATIVE); B INFLUENZA AG NEGATIVE (NEGATIVE)
[2018-08-26 15:09] VITALS: BP 118/79
== END 2018-08-26 15:18 | disposition home or self-care (01) ==
LOC: ER 10:45
DX: J06.9 Acute upper respiratory infection, unspecified (principal); N30.00 Acute cystitis without hematuria; R42 Dizziness and giddiness; R11.0 Nausea; R51 Headache; F17.200 Nicotine dependence, unspecified, uncomplicated; I10 Essential (primary) hypertension
CPT/HCPCS: 99285; 96360; 36415; 85025; 80048; 81001; 84484; 87804; 71045; 70450; S0119; J7030

== ENCOUNTER 2018-10-13 09:16 | Emergency (ER) | payer SELFPAY ==
--- NOTE | 2018-10-13 11:07 | ER Document Report ---
HPI - HPI Time Seen by Provider: 10/13/18 11:02 Pain Level: 0 Notes: Patient is an otherwise healthy 48-year-old female who presents with request to check for urinary tract infection. Patient reports she was seen here and treated with antibiotics for urinary tract infection recently. She states that all of her symptoms have completely resolved but she wants to double check to make sure the infection is gone. Patient has not had any fever, chills, nausea, vomiting and has no flank pain. Patient denies any urinary frequency or dysuria. - REPRODUCTIVE Reproductive: DENIES: : Past Medical History - General Information source: Patient - Social History Smoking Status: Never Smoker Frequency of alcohol use: None Drug Abuse: None Family History: Reviewed & Not Pertinent - Past Medical History Cardiac Medical History: Reports: Hx Hypertension Pulmonary Medical History: Reports: Hx Asthma Renal/ Medical History: Denies: Hx Peritoneal Dialysis Musculoskeletal Medical History: Reports Hx Arthritis, Reports Hx Musculoskeletal Deformity - Bone spurs, Reports Hx Musculoskeletal Trauma Past Surgical History: Reports: Hx Cardiac Catheterization, Hx Section - 3 - Immunizations Immunizations up to date: Yes Hx Diphtheria, Pertussis, Tetanus Vaccination: Yes - 2013 Vertical Provider Document - CONSTITUTIONAL Notes: PHYSICAL EXAMINATION: GENERAL: Well-appearing, well-nourished and in no acute distress. HEAD: Atraumatic, normocephalic. EYES: Pupils equal round extraocular movements intact, conjunctiva are normal. ENT: Nares patent NECK: Normal range of motion LUNGS: No respiratory distress Musculoskeletal: Normal range of motion NEUROLOGICAL: Normal speech, normal gait. PSYCH: Normal mood, normal affect. SKIN: Warm, Dry, normal turgor, no rashes or lesions noted. - INFECTION CONTROL TRAVEL OUTSIDE OF THE [place] IN LAST 30 DAYS: No Course - Re-evaluation Re-evalutation: 10/13/18 11:26 Urinalysis with large leukocyte esterase. Urinalysis looks comparable to the one that was done back in August when she was diagnosed with urinary tract infection. Finish the entire course of Keflex. Considering patient has no symptoms today and is afebrile. I will not restart patient on antibiotics but rather send the urine for culture. Will call patient's if antibiotics are warranted. ED return precautions given. - Vital Signs Vital signs: Temp Pulse Resp BP Pulse Ox 99.1 F 100 20 138/69 H 99 10/13/18 09:26 10/13/18 09:26 10/13/18 09:26 10/13/18 09:26 10/13/18 09:26 Discharge - Discharge Clinical Impression: Urinary tract infection recheck Condition: Stable Disposition: HOME, SELF-CARE Additional Instructions: Your urinalysis today looks very similar to the one that was done in August. Since you are not having any symptoms I will not placed you on another antibiotic. What I will do is send her urine for a urine culture. This will take 48-72 hours to come back. The urine culture will look specifically at what type of bacteria that may be in your urine if any. The culture nurse will call you if there is any bacteria found and will call in a prescription for antibiotics to the pharmacy of your choosing. Please return to the emergency department if you develop any symptoms of urinary tract infection such as burning with urination, urinary frequency, fever, abdominal pain or back pain.
[2018-10-13 11:22] LABS: APPEARANCE,URINE CLOUDY; BILIRUBIN,URINE NEGATIVE (NEGATIVE); COLOR,URINE YELLOW; GLUCOSE, URINE NEGATIVE (NEGATIVE); KETONES,URINE NEGATIVE (NEGATIVE); LEUKOCYTE ESTERASE,URINE LARGE (NEGATIVE); NITRITE,URINE NEGATIVE (NEGATIVE); PROTEIN,URINE NEGATIVE (NEGATIVE); URINE SPECIFIC GRAVITY 1.006; UROBILINOGEN,URINE NEGATIVE mg/dL (<2.0)
[2018-10-13 12:07] VITALS: BP 128/76
== END 2018-10-13 12:06 | disposition home or self-care (01) ==
LOC: ER 09:16
DX: Z09 Encounter for follow-up examination after completed treatment for conditions other than malignant neoplasm (principal); Z87.440 Personal history of urinary (tract) infections; I10 Essential (primary) hypertension
CPT/HCPCS: 81001; 87086; 87088; 99283

== ENCOUNTER 2018-12-19 16:48 | Emergency (ER) | payer SELFPAY ==
[2018-12-19 16:58] VITALS: BP 134/83
== END 2018-12-20 00:22 | disposition left against medical advice (07) ==
LOC: ER 16:48
DX: Z53.21 Procedure and treatment not carried out due to patient leaving prior to being seen by health care provider (principal)

== ENCOUNTER 2019-08-12 14:14 | Emergency (ER) | payer SELFPAY ==
--- NOTE | 2019-08-12 14:47 | ER Document Report ---
ED Medical Screen (RME) - General Chief Complaint: Abscess Stated Complaint: ABSCESS Time Seen by Provider: 08/12/19 14:44 TRAVEL OUTSIDE OF THE [place] IN LAST 30 DAYS: No - HPI Notes: 08/12/19 14:45 Patient is a 49-year-old female with history of asthma who presents complaining of abscess to the left mastoid area behind her ear that is been present for 3 to 4 days. Patient has noticed swelling and pain in the area. She has not had any internal ear pain that she is aware of, but the pain does radiate around in the area. No history of MRSA. No fever, chest pain, shortness of breath, severe headache. I did review with Dr. Pillai who does recommend imaging of the mastoid prior to I&D. Basic labs and CT soft tissue neck (per CT) imaging ordered. I have treated and performed a rapid initial assessment of this patient. A comprehensive ED assessment and evaluation of the patient, analysis of test results and completion of medical decision making process will be conducted by additional ED providers. PHYSICAL EXAMINATION: GENERAL: Well-appearing, well-nourished and in no acute distress. A&Ox4. Answers questions appropriately. Skin: there is a fluctuant, swollen, mildly indurated abscess to the left mastoid area. + tenderness. Ear: Cerumen obstructing view of TM. - Related Data Allergies/Adverse Reactions: banana Allergy (Verified 10/13/18 09:18) Past Medical History - Past Medical History Cardiac Medical History: Reports: Hx Atrial Fibrillation, Hx Hypertension Pulmonary Medical History: Reports: Hx Asthma Renal/ Medical History: Denies: Hx Peritoneal Dialysis Musculoskeltal Medical History: Reports Hx Arthritis, Reports Hx Musculoskeletal Deformity - Bone spurs, Reports Hx Musculoskeletal Trauma Past Surgical History: Reports: Hx Cardiac Catheterization, Hx Section - 3 - Immunizations Immunizations up to date: Yes Hx Diphtheria, Pertussis, Tetanus Vaccination: Yes - 2013 Physical Exam - Vital signs Vitals: Temp Pulse Resp BP Pulse Ox 98.1 F 90 18 135/58 H 99 08/12/19 14:24 08/12/19 14:24 08/12/19 14:24 08/12/19 14:24 08/12/19 14:24 Course - Vital Signs Vital signs: Temp Pulse Resp BP Pulse Ox 98.1 F 90 18 135/58 H 99 08/12/19 14:24 08/12/19 14:24 08/12/19 14:24 08/12/19 14:24 08/12/19 14:24
[2019-08-12 15:43] LABS: ABSOLUTE EOSINOPHILS # (AUTO) 0.5 10^3/uL (0.0-0.6); ABSOLUTE LYMPHOCYTES (AUTO) 2.3 10^3/uL (0.5-4.7); ABSOLUTE MONOCYTES (AUTO) 0.4 10^3/uL (0.1-1.4); ABSOLUTE NEUT (AUTO) 3.8 10^3/uL (1.7-8.2); BASOPHILS % (AUTO) 0.7 % (0-2); EOSINOPHILS % (AUTO) 6.7 % (0-6); HEMATOCRIT 39.7 % (36.0-47.0); HEMOGLOBIN 13.5 g/dL (12.0-15.5); LYMPHOCYTES % (AUTO) 33.1 % (13-45); MEAN CORPUSCULAR HEMOGLOBIN 29.2 pg (27.0-33.4); MEAN CORPUSCULAR HGB CONC 33.9 g/dL (32.0-36.0); MEAN CORPUSCULAR VOLUME 86 fl (80-97); MONOCYTES % (AUTO) 5.7 % (3-13); PLATELET COUNT 286 10^3/uL (150-450); RED BLOOD COUNT 4.61 10^6/uL (3.72-5.28); RED CELL DISTRIBUTION WIDTH 14.2 % (11.5-14.0); SEGMENTED NEUTROPHILS % (AUTO) 53.8 % (42-78); TOTAL CELLS COUNTED % (AUTO) 100 %
[2019-08-12 16:02] LABS: ANION GAP 9 (5-19); BLOOD UREA NITROGEN 8 mg/dL (7-20); CALCIUM 10.3 mg/dL (8.4-10.2); CARBON DIOXIDE 24 mmol/L (22-30); CHLORIDE 109 mmol/L (98-107); GLUCOSE 84 mg/dL (75-110); POTASSIUM 4.3 mmol/L (3.6-5.0)
[2019-08-12] MEDS ORDERED: LIDOCAINE 2% INJ-PF (20 MG/ML) 10 ML AMPUL INFIL ONE (16:47)
[2019-08-12] MEDS ORDERED: CLINDAMYCIN 600 MG/D5W RTU 600 MG/50 ML RTUPB IV ONE (16:51)
--- NOTE | 2019-08-12 16:56 | ER Document Report ---
ED General - General Chief Complaint: Abscess Stated Complaint: ABSCESS Time Seen by Provider: 08/12/19 14:44 Mode of Arrival: Ambulatory Information source: Patient Notes: This 49-year-old woman presents to the emergency department with a area of swelling and pain behind the left ear. She states that she has had a 4-day history of increasing swelling and pain. She is concerned that she was bitten by a spider or insect. She also complains of pain which radiates down into the lateral neck. There is been no drainage and she denies fever, nausea vomiting or neurologic symptoms. TRAVEL OUTSIDE OF THE [place] IN LAST 30 DAYS: No - Related Data Allergies/Adverse Reactions: banana Allergy (Verified 10/13/18 09:18) Past Medical History - Social History Smoking Status: Current Every Day Smoker Chew tobacco use (# tins/day): No Frequency of alcohol use: Rare Family History: Reviewed & Not Pertinent Patient has suicidal ideation: No Patient has homicidal ideation: No - Past Medical History Cardiac Medical History: Reports: Hx Atrial Fibrillation, Hx Hypertension Pulmonary Medical History: Reports: Hx Asthma Renal/ Medical History: Denies: Hx Peritoneal Dialysis Musculoskeletal Medical History: Reports Hx Arthritis, Reports Hx Musculoskeletal Deformity - Bone spurs, Reports Hx Musculoskeletal Trauma Past Surgical History: Reports: Hx Cardiac Catheterization, Hx Section - 3 - Immunizations Immunizations up to date: Yes Hx Diphtheria, Pertussis, Tetanus Vaccination: Yes - 2013 Physical Exam - Vital signs Vitals: Temp Pulse Resp BP Pulse Ox 98.1 F 90 18 135/58 H 99 08/12/19 14:24 08/12/19 14:24 08/12/19 14:24 08/12/19 14:24 08/12/19 14:24 Course - Vital Signs Vital signs: Temp Pulse Resp BP Pulse Ox 98.3 F 80 18 125/64 100 08/12/19 18:03 08/12/19 18:03 08/12/19 18:03 08/12/19 18:03 08/12/19 18:03 - Laboratory Result Diagrams: 08/12/19 15:07 08/12/19 15:07 Laboratory results interpreted by me: 08/12/19 08/12/19 15:07 15:07 RDW 14.2 H Eos % (Auto) 6.7 H Chloride 109 H Calcium 10.3 H Discharge - Discharge Clinical Impression: Abscess of left external ear Condition: Good Disposition: HOME, SELF-CARE Instructions: Cephalexin ([facility]), Trimethoprim-Sulfa ([facility]), Abscess ([facility]), Post Incision and Drainage
[2019-08-12 18:03] VITALS: BP 125/64
== END 2019-08-12 18:35 | disposition home or self-care (01) ==
LOC: ER 14:14
DX: H60.02 Abscess of left external ear (principal); F17.200 Nicotine dependence, unspecified, uncomplicated; I10 Essential (primary) hypertension; J45.909 Unspecified asthma, uncomplicated; Z91.018 Allergy to other foods
CPT/HCPCS: 36415; 80048; 85025; 87040; 87070; 87075; 87077; 87186; 87205; 96365; 99283

== ENCOUNTER 2019-08-15 11:40 | Emergency (ER) | payer SELFPAY ==
[2019-08-15 11:53] VITALS: BP 128/84
--- NOTE | 2019-08-15 12:22 | ER Document Report ---
ED Suture/Wound Recheck - General Chief Complaint: Wound Recheck Stated Complaint: WOUND RECHECK/ABSCESS Time Seen by Provider: 08/15/19 12:10 Mode of Arrival: Ambulatory Information source: Patient Notes: 49-year-old female presented to ED for recheck of abscess to the left neck. Wound is healing well. Culture did show MRSA. Patient is on Keflex and Bactrim. Bactrim is susceptible. Patient states she is still having some pain at the site. TRAVEL OUTSIDE OF THE [place] IN LAST 30 DAYS: No - HPI Previous ED treatment: I&D of abscess Antibiotics given previously: Prescription Quality of pain: Throbbing Severity: Moderate Pain Level: 4 Symptoms since procedure: Pain. denies: Red streaks, Redness Exacerbated by: Denies Relieved by: Denies - Related Data Allergies/Adverse Reactions: banana Allergy (Verified 10/13/18 09:18) Past Medical History - General Information source: Patient - Social History Smoking Status: Current Every Day Smoker Cigarette use (# per day): Yes - 7 cigarettes a day Smoking Education Provided: Yes - 4 minutes Frequency of alcohol use: Occasional Drug Abuse: None Occupation: Home Lives with: Family Family History: Reviewed & Not Pertinent Patient has suicidal ideation: No Patient has homicidal ideation: No - Past Medical History Cardiac Medical History: Reports: Hx Atrial Fibrillation, Hx Hypertension Pulmonary Medical History: Reports: Hx Asthma Neurological Medical History: Reports: None Endocrine Medical History: Reports: None Renal/ Medical History: Reports: None Malignancy Medical History: Reports: None GI Medical History: Reports: None Musculoskeletal Medical History: Reports Hx Arthritis, Reports Hx Musculoskeletal Deformity - Bone spurs, Reports Hx Musculoskeletal Trauma Skin Medical History: Reports Hx MRSA Psychiatric Medical History: Reports: None Traumatic Medical History: Reports: None Infectious Medical History: Reports: Hx MRSA Past Surgical History: Reports: Hx Cardiac Catheterization, Hx Section - 3 - Immunizations Immunizations up to date: Yes Hx Diphtheria, Pertussis, Tetanus Vaccination: Yes - 2013 Review of Systems - Review of Systems Constitutional: No symptoms reported EENT: No symptoms reported Cardiovascular: No symptoms reported Respiratory: No symptoms reported Gastrointestinal: No symptoms reported Genitourinary: No symptoms reported Female Genitourinary: No symptoms reported Musculoskeletal: No symptoms reported Skin: Other - Healing abscess to left neck Hematologic/Lymphatic: No symptoms reported Neurological/Psychological: No symptoms reported -: Yes All other systems reviewed and negative Physical Exam - Vital signs Vitals: Temp Pulse Resp BP Pulse Ox 98.1 F 86 18 128/84 H 98 08/15/19 11:52 08/15/19 11:52 08/15/19 11:52 08/15/19 11:52 08/15/19 11:52 Interpretation: Normal - General General appearance: Appears well, Alert - HEENT Head: Normocephalic, Atraumatic Eyes: Normal Pupils: PERRL - Respiratory Respiratory status: No respiratory distress Chest status: Nontender Breath sounds: Normal Chest palpation: Normal - Cardiovascular Rhythm: Regular Heart sounds: Normal auscultation Murmur: No - Abdominal Inspection: Normal Distension: No distension Bowel sounds: Normal Tenderness: Nontender Organomegaly: No organomegaly - Back Back: Normal, Nontender - Extremities General upper extremity: Normal inspection, Nontender, Normal color, Normal ROM, Normal temperature General lower extremity: Normal inspection, Nontender, Normal color, Normal ROM, Normal temperature, Normal weight bearing. No: Leonides's sign - Neurological Neuro grossly intact: Yes Cognition: Normal Orientation: AAOx4 Haddock Coma Scale Eye Opening: Spontaneous Gary Coma Scale Verbal: Oriented Gary Coma Scale Motor: Obeys Commands Gary Coma Scale Total: 15 Speech: Normal Motor strength normal: LUE, RUE, LLE, RLE Sensory: Normal - Psychological Associated symptoms: Normal affect, Normal mood - Skin Skin Temperature: Warm Skin Moisture: Dry Skin Color: Normal Location of irregularity: Neck - Healing abscess to the left neck Irregularity with: Tenderness Course - Vital Signs Vital signs: Temp Pulse Resp BP Pulse Ox 98.1 F 86 18 128/84 H 98 08/15/19 11:52 08/15/19 11:52 08/15/19 11:52 08/15/19 11:52 08/15/19 11:52 Discharge - Discharge Clinical Impression: Abscess re-check Condition: Stable Disposition: HOME, SELF-CARE Instructions: Family Physicians / Practices Additional Instructions: You were seen today for recheck of your abscess. I have removed the packing. Abscess is healing well. Please continue to take your antibiotics as they were prescribed. Please take until they are all completed. Irrigate the area with the shower after you have finished your shower daily. Follow-up with your primary care doctor in the next 3 to 4 days FOLLOW-UP CARE: If you have been referred to a physician for follow-up care, call the physicians office for an appointment as you were instructed or within the next two days. If you experience worsening or a significant change in your symptoms, notify the physician immediately or return to the Emergency Department at any time for re-evaluation. Forms: Elevated Blood Pressure, Smoking Cessation Education
== END 2019-08-15 12:29 | disposition home or self-care (01) ==
LOC: ER 11:40
DX: L02.11 Cutaneous abscess of neck (principal); B95.62 Methicillin resistant Staphylococcus aureus infection as the cause of diseases classified elsewhere; Z98.890 Other specified postprocedural states; F17.210 Nicotine dependence, cigarettes, uncomplicated; Z71.6 Tobacco abuse counseling; I10 Essential (primary) hypertension; J45.909 Unspecified asthma, uncomplicated; Z91.018 Allergy to other foods
CPT/HCPCS: 99282; 99406

== ENCOUNTER 2020-10-07 08:06 | Emergency (ER) | payer SELFPAY ==
[2020-10-07 10:17] LABS: BACTERIA (WET MOUNT) 3+ BACTERIA SEEN; EPITHELIALS (WET MOUNT) 3+ EPITHELIALS SEEN; RBCS (WET MOUNT) FEW RBCS SEEN; T.VAGINALIS (WET MOUNT) NO TRICHOMONAS SEEN; WBCS (WET MOUNT) FEW WBCS SEEN; YEAST (WET MOUNT) NO YEAST SEEN
[2020-10-07 10:31] LABS: APPEARANCE,URINE CLEAR; BILIRUBIN,URINE NEGATIVE (NEGATIVE); COLOR,URINE YELLOW; GLUCOSE, URINE NEGATIVE (NEGATIVE); KETONES,URINE NEGATIVE (NEGATIVE); LEUKOCYTE ESTERASE,URINE NEGATIVE (NEGATIVE); NITRITE,URINE NEGATIVE (NEGATIVE); PROTEIN,URINE NEGATIVE (NEGATIVE); UROBILINOGEN,URINE NEGATIVE mg/dL (<2.0)
--- NOTE | 2020-10-07 10:56 | ER Document Report ---
ED GI/ - General Chief Complaint: Abdominal Pain Stated Complaint: SHOULDER PAIN Time Seen by Provider: 10/07/20 08:15 TRAVEL OUTSIDE OF THE [place] IN LAST 30 DAYS: No - HPI Notes: 10/07/20 10:59 50-year-old female presents to ED for evaluation of right shoulder pain for the last 2 days as well as vaginal discharge with concern for STD. Patient reports she has lower pelvic discomfort however no abdominal pain. Patient states she did not injure her shoulder. Reports the pain is present to the proximal aspect of the humerus and radiates backward into the shoulder blade. Denies chest pain or shortness of breath. Patient reports no radiation of pain into the elbow, hand, or wrist. Denies paresthesias. 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 Patient reports that she has experienced issues with STDs in the past inclusive of trichamonas. Denies any abdominal pain, nausea, vomiting, chest pain, SOB, flank pain, dysuria, or concern for . 10/07/20 11:01 - Related Data Allergies/Adverse Reactions: banana Allergy (Verified 10/07/20 08:52) Past Medical History - Social History Smoking Status: Current Every Day Smoker Chew tobacco use (# tins/day): No Frequency of alcohol use: Occasional Drug Abuse: None Family History: Reviewed & Not Pertinent - Past Medical History Cardiac Medical History: Reports: Hx Atrial Fibrillation, Hx Hypertension Pulmonary Medical History: Reports: Hx Asthma Musculoskeletal Medical History: Reports Hx Arthritis, Reports Hx Musculoskeletal Deformity - Bone spurs, Reports Hx Musculoskeletal Trauma Skin Medical History: Reports Hx MRSA Infectious Medical History: Reports: Hx MRSA Past Surgical History: Reports: Hx Cardiac Catheterization, Hx Section - 3 - Immunizations Immunizations up to date: Yes Hx Diphtheria, Pertussis, Tetanus Vaccination: Yes - 2013 Review of Systems - Review of Systems Notes: Constitutional: Negative for fever. HENT: Negative for sore throat. Eyes: Negative for visual changes. Cardiovascular: Negative for chest pain and palpitations. Respiratory: Negative for shortness of breath. Gastrointestinal: Negative for abdominal pain, vomiting or diarrhea. Genitourinary: Negative for dysuria. Musculoskeletal: Negative for back pain. + for right shoulder pain. Skin: Negative for rash. Neurological: Negative for headaches, weakness or numbness. 10 point ROS negative except as marked above and in HPI. Physical Exam - Vital signs Vitals: Temp Pulse BP Pulse Ox 98.2 F 98 129/86 H 98 10/07/20 08:11 10/07/20 08:11 10/07/20 08:11 10/07/20 08:11 General: No acute distress. Alert and oriented x3. Sitting comfortably in a stretcher. Skin: No jaundice, pallor, petechiae, or rashes. Warm and dry. Neck: Supple with no lymphadenopathy. Full range of motion. Spasms to right posterior cervical region and supraspinatous region. FROM of the right shoulder. Heart: Regular rate and rhythm. S1,S2. No murmurs, rubs, or gallops. Lungs: Clear to ausculation bilaterally. No wheezes, rhonchi, rales. Equal chest expansion. No retractions. Abdomen: Soft, nontender to palpation, no open lesions or rashes, nondistended. Positive bowel sounds in all 4 quadrants. No masses. No CVA tenderness bilaterally. Back: No midline spinal TTP. No paraspinous muscular TTP. Neuro: GCS 15. Moving all extremities without discomfort. Psych: Mood and affect appropriate. Course - Vital Signs Vital signs: Temp Pulse Resp BP Pulse Ox 98.2 F 98 129/86 H 98 10/07/20 08:11 10/07/20 08:11 10/07/20 08:11 10/07/20 08:11 10/07/20 11:04 50-year-old female presents to ED for evaluation of vaginal irritation as well as right shoulder pain. Denies trauma or injury. On physical exam, patient has full range of motion of the shoulder. There is a palpable spasm to the supraspinatus region. Patient was advised that she does not have evidence concerning for fracture or dislocation I do not believe imaging will be necessary. Patient is to start on anti-inflammatory medications and muscle relaxers. Advised to use rest, ice, and elevation to the extremity. Advised she may use things like a tennis ball rule out the area and should follow-up with orthopedics if pain persist. Understands to return for any new or worsening symptoms. Patient was evaluated with urinalysis which is negative for infection. Wet prep is notable for bacteria and clue cells concerning for bacterial vaginosis. Results discussed with patient. patient started on flagyl. Gonorrhea and chlamydia cultures are pending. Patient is prophylactically treated with Zithromax and Rocephin. Patient understands that if cultures are positive they will be notified. Patient is advised to abstain from sex for at least one week. Patient is counseled on safe sex practices. Patient is advised to follow up with primary care / [facility]. ER. Patient is agreeable with this plan. - Laboratory Results Laboratory Results Interpreted: 10/07/20 10:05 Urine Blood SMALL H Critical Laboratory Results Reviewed: No Critical Results - Radiology Results Critical Radiology Results Reviewed: No Critical Results Discharge - Discharge Clinical Impression: Bacterial vaginosis, Right shoulder tendonitis Condition: Stable Disposition: HOME, SELF-CARE Instructions: Cervicitis ([facility]), Ice & Elevation ([facility]) Additional Instructions: Rest, ice, and elevate the shoulder. Apply tennis ball to the back of shoulder in circular motion to alleviate pain. Prescriptions: Ketorolac Tromethamine [Toradol 10 mg Tablet] 10 mg PO Q8HP PRN #15 tablet PRN Reason: Metronidazole [Flagyl 500 mg Tablet] 500 mg PO Q6H #40 tablet Cyclobenzaprine HCl [Flexeril 10 mg Tablet] 10 mg PO TIDP PRN #15 tab PRN Reason: Forms: Return to Work
[2020-10-07] MEDS ORDERED: AZITHROMYCIN 1 GM SUSP PACKET PO ONE (11:00)
[2020-10-07] MEDS ORDERED: CEFTRIAXONE INJ 250 MG VIAL IM ONE (11:01)
[2020-10-07] MEDS ORDERED: LIDOCAINE 2% INJ (20 MG/ML) 20 ML MDV INJ ONE (11:43)
[2020-10-07 11:44] LABS: CHLAM PCR NOT DETECTED (NOT DETECT)
[2020-10-07 11:59] VITALS: BP 118/84
== END 2020-10-07 11:57 | disposition home or self-care (01) ==
LOC: ER 08:06
DX: M77.8 Other enthesopathies, not elsewhere classified (principal); M25.511 Pain in right shoulder; N76.0 Acute vaginitis; B96.89 Other specified bacterial agents as the cause of diseases classified elsewhere; F17.200 Nicotine dependence, unspecified, uncomplicated; I10 Essential (primary) hypertension; J45.909 Unspecified asthma, uncomplicated; Z91.018 Allergy to other foods
CPT/HCPCS: 99284; 96372; 87210; 81001; 87491; 87591; J3490; Q0144; J0696